=== PATIENT | female | born 1995 | race Caucasian/White ===

== ENCOUNTER 2016-10-25 22:29 | Emergency (ER) | payer OTHER ==
[~2016-10-25] VITALS: Ht 160 cm; Wt 75.4 kg
[~2016-10-25 22:29] MED LIST: BCPILLS PO
[2016-10-25 22:34] VITALS: TEMP 36.5; Ht 160 cm; Wt 75.4 kg
[2016-10-25] MEDS ORDERED: SODIUM CHLORIDE 0.9% 1000ML 1,000 ML IV STA (23:37)
[2016-10-25] MEDS ORDERED: ONDANSETRON INJ 2 MG/ML 2 ML VIAL IV STA (23:51)
[2016-10-26 00:04] LABS: HEMATOCRIT 39.2 % (37-47); MEAN CELL VOLUME 88.9 fL (80-100); MEAN CORPUSCULAR HEMOGLOBIN 29.9 pg (25-34); MEAN CORPUSCULAR HGB CONC 33.7 g/dl (32-36); MEAN PLATELET VOLUME 10.7 fL (7.4-10.4); PLATELET COUNT 234 K/uL (130-400); RED BLOOD COUNT 4.41 M/uL (4.2-5.4); WHITE BLOOD COUNT 17.56 K/uL (4.8-10.8)
[2016-10-26 00:28] LABS: BUN/CREATININE RATIO 21.3 (10-20); CALCIUM 8.8 mg/dl (8.5-10.1); CREATININE 0.6 mg/dl (0.60-1.20); POTASSIUM 3.5 mmol/L (3.5-5.1)
[2016-10-26 00:32] LABS: BASO % 0.1 %; BASO ABS # 0.02 K/uL (0-0.2); COMPLETE YES; EOS % 0.1 %; IG% 0.3 %; LYMPH % 6.4 %; LYMPH ABS # 1.12 K/uL (1.2-3.4); MONO % 3.5 %; NEUT % 89.6 %
[2016-10-26] MEDS ORDERED: MILK AND MOLASSES ENEMA PR STA (01:24)
[2016-10-26] MEDS ORDERED: MAGNESIUM CITRATE 296 ML/BTL PO ONE (02:30)
[2016-10-26 02:42] VITALS: BP 127/81; PULSE 79; O2SAT 100
--- NOTE | 2016-10-26 03:46 | EMERGENCY ROOM VISIT NOTE ---
History First contact with patient: 23:27 Chief Complaint: CONSTIPATION Stated Complaint: ABDOMINAL PAIN, VOMITING, Nursing Triage Summary: no BM for 10 days. extreme pain. took mirilax and still unable to go. 9-10 weeks History of Present Illness The patient is a 21 year old female who presents to the Emergency Room with complaints of abdominal cramping and bloating who is currently 10 weeks who is not had a bowel movement in 10 days. Patient has had an appendectomy in the past. She describes the pain as bloating, ranging in severity 4 out of 10 throughout her abdomen. Patient has tried MiraLAX and Fleet's with no improvement of symptoms. Patient has appointment tomorrow with her SMOKING PIPE MAKER for her initial visit. This is her second . No miscarriages. She is one living child. Patient denies vaginal itching or discharge, vaginal bleeding, urinary symptoms, back pain, nausea, vomiting, diarrhea, fever, chills, chest and, dyspnea or any other medical complaints. No history of bowel obstruction. Review of Systems See HPI for pertinent positives & negatives. A total of 10 systems reviewed and were otherwise negative. Past Medical/Surgical History Appendectomy, tonsillectomy, adenoidectomy Social History Smoking Status: Never Smoker Smokeless Tobacco Use: No Alcohol Use: none Drug Use: none Marital Status: single Housing Status: lives with family Occupation Status: employed Current/Historical Medications No Active Prescriptions or Reported Meds Allergies Coded Allergies: No Known Allergies (Unverified , 12/31/15) Physical Exam Vital Signs Date Time Temp Pulse Resp B/P (MAP) Pulse Ox O2 Delivery O2 Flow Rate FiO2 10/26/16 02:42 79 20 127/81 100 10/26/16 00:30 82 18 119/72 99 Room Air 10/25/16 22:34 36.5 78 18 112/63 98 Room Air Pain Rating (0-10): 2.0 Physical Exam VITALS: Vitals are noted on the nurse's note and reviewed by myself. Vital signs stable. GENERAL: Pleasant female, in no acute distress, nondiaphoretic, well-developed well-nourished. SKIN: The skin was without rashes, erythema, edema, or bruising. There is no tenting of the skin. Capillary reflex less than 2 seconds. HEAD: Normocephalic atraumatic. EARS: External auditory canals clear, tympanic membranes pearly crocker without erythema or effusion bilaterally. EYES: Pupils equal round and reactive to light and accommodation. Conjunctivae without injection, sclerae without icterus. Extraocular movements intact. NOSE: Patent, turbinates without inflammation or discharge. MOUTH: Mucous membranes moist. . Pharynx without erythema or exudate. Uvula midline. Airway patent. Tongue does not deviate. NECK: Supple without nuchal rigidity. No lymphadenopathy. No thyromegaly. Cervical spine is nontender. No JVD. HEART: Regular rate and rhythm without murmurs gallops or rubs. LUNGS: Clear to auscultation bilaterally without wheezes, rales or rhonchi. No dullness to percussion. No retractions or accessory muscle use. ABDOMEN: Positive bowel sounds x 4. Normal tympanic percussion. Soft, diffusely tender to palpation with no localized tenderness, no CVA tenderness without masses or organomegaly. Romano sign negative. No guarding or rebound tenderness. MUSCULOSKELETAL: No muscle atrophy, erythema, or edema noted. NEURO: Patient was alert and oriented to person place and time. Normal sensation to light and sharp touch. No focal neurological deficits. Medical Decision & Procedures Laboratory Results 10/25/16 23:50 Red Blood Count 4.41, Mean Corpuscular Volume 88.9, Mean Corpuscular Hemoglobin 29.9, Mean Corpuscular Hemoglobin Concent 33.7, Mean Platelet Volume 10.7, Neutrophils (%) (Auto) 89.6, Lymphocytes (%) (Auto) 6.4, Monocytes (%) (Auto) 3.5, Eosinophils (%) (Auto) 0.1, Basophils (%) (Auto) 0.1, Neutrophils # (Auto) 15.74, Lymphocytes # (Auto) 1.12, Monocytes # (Auto) 0.61, Eosinophils # (Auto) 0.01, Basophils # (Auto) 0.02 10/25/16 23:50 Test 10/25/16 23:50 White Blood Count 17.56 K/uL (4.8-10.8) Red Blood Count 4.41 M/uL (4.2-5.4) Hemoglobin 13.2 g/dL (12.0-16.0) Hematocrit 39.2 % (37-47) Mean Corpuscular Volume 88.9 fL (80-100) Mean Corpuscular Hemoglobin 29.9 pg (25-34) Mean Corpuscular Hemoglobin Concent 33.7 g/dl (32-36) Platelet Count 234 K/uL (130-400) Mean Platelet Volume 10.7 fL (7.4-10.4) Neutrophils (%) (Auto) 89.6 % Lymphocytes (%) (Auto) 6.4 % Monocytes (%) (Auto) 3.5 % Eosinophils (%) (Auto) 0.1 % Basophils (%) (Auto) 0.1 % Neutrophils # (Auto) 15.74 K/uL (1.4-6.5) Lymphocytes # (Auto) 1.12 K/uL (1.2-3.4) Monocytes # (Auto) 0.61 K/uL (0.11-0.59) Eosinophils # (Auto) 0.01 K/uL (0-0.5) Basophils # (Auto) 0.02 K/uL (0-0.2) RDW Standard Deviation 39.9 fL (36.4-46.3) RDW Coefficient of Variation 12.3 % (11.5-14.5) Immature Granulocyte % (Auto) 0.3 % Immature Granulocyte # (Auto) 0.06 K/uL (0.00-0.02) Red Blood Cell Morphology Unremarkable Anion Gap 8.0 mmol/L (3-11) Est Creatinine Clear Calc Drug Dose 141.8 ml/min Estimated GFR () 148.9 Estimated GFR (Non- 128.5 BUN/Creatinine Ratio 21.3 (10-20) Calcium Level 8.8 mg/dl (8.5-10.1) Human Chorionic Gonadotropin, Quant 073651 mIU/mL Medications Administered Medications (Trade) Dose Ordered Sig/Wesly Route Start Time Stop Time Status Last Admin Dose Admin Sodium Chloride 1,000 ml @ 999 mls/hr Q1H1M STAT IV 10/25/16 23:37 10/26/16 00:37 DC 10/25/16 23:57 999 MLS/HR Ondansetron HCl (Zofran Inj) 4 mg NOW STAT IV 10/25/16 23:51 10/25/16 23:52 DC 10/25/16 23:57 4 MG Miscellaneous Medication (Milk And Molasses Enema) 1 ea NOW STAT TX 10/26/16 01:24 10/26/16 01:25 DC 10/26/16 01:24 1 EA Magnesium Citrate (Citrate Of Magnesia Soln) 300 ml NOW ONCE PO 10/26/16 02:30 10/26/16 02:31 DC 10/26/16 02:30 300 ML ED Course Prior records/ancillary studies reviewed. Triage Nursing notes reviewed. Additional history obtained from family The patient's history was concerning for abdominal pain he was 10 weeks . Differential diagnosis: Etiologies such as complication with , ectopic , appendicitis , diverticulitis, PUD, biliary pathology, UTI, pancreatitis, obstruction, mesenteric ischemia, aortic pathology, infections, inflammatory bowel disease, renal colic, as well as others were entertained. Physical examination findings: As above. ER treatment provided: Enema, magnesium citrate On reassessment the patient felt better. Diagnostics interpreted by me: The labs revealed stable H&H. Positive hCG Imaging studies: Acute abdominal series with no free air or obstruction per my interpretation Ultrasound was reviewed and read by radiology Exam and history seem consistent with constipation. Patient felt much better after being medicated as above. She is strongly encouraged to increase her fluid and fiber intake and to follow-up as scheduled tomorrow with OB or here in the ER sooner for abdominal pain, fevers, vaginal bleeding, worsening signs or symptoms or as needed. Patient not have an acute abdomen on exam. She is well-appearing. She is tolerating fluids. She requested to leave. By the evaluation outlined above emergent etiologies such as appendicitis, diverticulitis, PUD, biliary pathology, UTI, pancreatitis, obstruction, mesenteric ischemia, aortic pathology, infections, inflammatory bowel disease, renal colic, as well as others were deemed relatively unlikely. The pt informed about the findings as listed above. All questions were answered and pleased with the treatment. Return instructions were outlined and the patient was discharged in stable condition. Outpatient prescription management: Magnesium citrate Referral: The patient was referred back to their PRINCIPLE INDUSTRIAL HYGIENIST for follow-up in 2 to 3 days for a recheck of the current condition. Case reviewed with my attending Medical Decision As above Impression Primary Impression: Constipation Additional Impression: Generalized abdominal discomfort Departure Information Dispostion Home / Self-Care Condition FAIR Prescriptions No Active Prescriptions or Reported Meds Forms HOME CARE DOCUMENTATION FORM, IMPORTANT VISIT INFORMATION Patient Instructions Constipation, My [facility] Additional Instructions Magnesium citrate: Drink half the bottle when you get home, if you do not have a bowel movement within 6 hours then drink the rest. Stay near a toilet. Increase your fluid and fiber intake. Acetaminophen(Tylenol) may be used for fever or pain. Use 1000mg every six hours as needed. Avoid using more than 3000mg in a 24 hour period. Rest and drink plenty of fluids as tolerated. Continue current medications. Avoid strenuous activities and anything that worsens your pain. Resume normal activities once your symptoms resolve. Return to the ER immediately for worsening or persistent abdominal pain, vomiting, fevers, chest pains, difficulty breathing, worsening of your condition , or as needed. Follow up with your wire winder in 2-3 days for a recheck of your current condition. Problem Qualifiers Primary Impression: Constipation Constipation type: unspecified constipation type Qualified Codes: K59.00 - Constipation, unspecified
--- NOTE | 2016-10-26 07:21 | DIAGNOSTIC IMAGING REPORT ---
ABDOMEN 2 VIEWS CLINICAL HISTORY: Abdominal pain. No recent bowel movement. 9-10 weeks . COMPARISON STUDY: CT of the abdomen and pelvis November 07, 2009. TECHNIQUE: The risks and benefits were discussed with the patient given . The patient agreed to this procedure. Upright and supine radiographs of the abdomen and pelvis were obtained. FINDINGS: There is no free air. Bowel gas pattern is normal. There is a moderate amount of stool within the colon with minimal stool within the rectum. There is a suspected 4 mm calculus within lower pole of the right kidney. A 2 mm left pelvic calcification is indeterminate. IMPRESSION: 1. No free air or evidence of bowel obstruction. 2. Suspected 4 mm right renal calculus. 3. 2 mm left pelvic calcification. A phlebolith is favored although a distal left ureteral calculus could appear similar. Electronically signed by: Goran Perez M.D. 10/26/2016 7:20 AM Dictated Date/Time: 10/26/2016 7:18 AM
--- NOTE | 2016-10-26 08:04 | DIAGNOSTIC IMAGING REPORT ---
ULTRASOUND OF THE PELVIS CLINICAL HISTORY: Pelvic pain. 10 weeks . COMPARISON STUDY: Pelvic ultrasound dated 12/31/2015. TECHNIQUE: Real-time, grayscale, and color flow sonography of the pelvis is performed transabdominally. Images are reviewed in the transverse and longitudinal planes. The patient declined the endovaginal examination. FINDINGS: Uterus: The uterus is normal in slightly heterogeneous in echotexture and measures approximately 10 cm in length Gestation: There is a single live intrauterine gestation with an estimated heart rate of 167 bpm. The crown-rump length measures 2.02 cm, corresponding to an estimated age of 8 weeks 4 days. A yolk sac is identified. There is trace subchorionic hemorrhage measuring 2.5 x 0.4 x 0.5 cm. Ovaries: The ovaries are normal in size and morphology. The right ovary measures 3.0 x 1.4 x 2.3 cm and the left ovary measures 4.1 x 2.5 x 2.2 cm. Normal Doppler waveforms are shown within both ovaries. Pelvis: There is no free fluid in the cul-de-sac. No concerning adnexal lesion is seen. IMPRESSION: 1. There is a single live intrauterine gestation with an estimated age of 8 weeks 4 days by crown-rump length measurement. 2. There is trace subchorionic hemorrhage. 3. The ovaries are normal as visualized. No adnexal lesion is seen. 4. The patient declined the endovaginal examination. Electronically signed by: Mikel Proctor M.D. 10/26/2016 8:03 AM Dictated Date/Time: 10/26/2016 8:00 AM
== END 2016-10-26 02:43 | disposition home or self-care (01) ==
LOC: C.EDB 22:30 → C.EDC 10-26 02:43
DX: K59.00 Constipation, unspecified (principal); R10.84 Generalized abdominal pain; Z98.890 Other specified postprocedural states

== ENCOUNTER → 2016-10-28 | Outpatient (CLI) | payer OTHER ==
[2016-10-28 12:18] LABS: BASO % 0.3 %; BASO ABS # 0.02 K/uL (0-0.2); COMPLETE YES; EOS % 1.3 %; HEMATOCRIT 36.3 % (37-47); IG% 0.3 %; LYMPH % 25.3 %; LYMPH ABS # 1.82 K/uL (1.2-3.4); MEAN CELL VOLUME 89.9 fL (80-100); MEAN CORPUSCULAR HGB CONC 33.3 g/dl (32-36); MEAN PLATELET VOLUME 11.1 fL (7.4-10.4); MONO % 6.8 %; PLATELET COUNT 225 K/uL (130-400); RED BLOOD COUNT 4.04 M/uL (4.2-5.4); WHITE BLOOD COUNT 7.19 K/uL (4.8-10.8)
== END | disposition home or self-care (01) ==
LOC: C.LAB1850 10:40
PROVIDERS: ATTEND Obstetrics & Gynecology
DX: Z34.81 Encounter for supervision of other normal pregnancy, first trimester (principal)

== ENCOUNTER → 2016-10-28 | Outpatient (CLI) | payer OTHER ==
[2016-10-28 15:02] LABS: URINE APPEARANCE CLEAR (CLEAR); URINE BILIRUBIN NEG (NEG); URINE COLOR DK YELLOW; URINE EPITHELIAL CELL AUTO >30 /lpf (0-5); URINE NITRITE NEG (NEG); URINE PH 6.5 (4.5-7.5); URINE SPECIFIC GRAVITY 1.029 (1.000-1.030); UROBILINOGEN NEG (NEG)
[2016-10-28 15:03] LABS: MANUAL MICROSCOPIC REQUIRED? NO; REVIEW REQ? NO
[2016-11-01 07:26] LABS: CHLAMYDIA TRACH RNA*** NOT DETECTED (NOT DETECTED); GC (NEIS GONORRHOEAE)RNA** NOT DETECTED (NOT DETECTED)
== END | disposition home or self-care (01) ==
LOC: C.LABSPEC 13:51
PROVIDERS: ATTEND Obstetrics & Gynecology
DX: Z34.81 Encounter for supervision of other normal pregnancy, first trimester (principal)

== ENCOUNTER → 2016-10-28 | Outpatient (CLI) | payer OTHER | END | disposition home or self-care (01) | LOC: C.PAPS 14:20 | PROVIDERS: ATTEND Obstetrics & Gynecology | DX: Z12.4 Encounter for screening for malignant neoplasm of cervix (principal); Z33.1 Pregnant state, incidental; R87.616 Satisfactory cervical smear but lacking transformation zone ==

== ENCOUNTER → 2016-11-18 | Outpatient (CLI) | payer OTHER ==
[2016-11-22 06:15] LABS: HEPATITIS C VIRAL RNA BY PCR <15 NOT DETECTED IU/ML (<15); HEPATITIS C VIRAL RNA(LOG) PCR <1.18 NOT DETECTED LOG IU/ML (<1.18)
== END | disposition home or self-care (01) ==
LOC: C.LAB1850 13:31
PROVIDERS: ATTEND Obstetrics & Gynecology
DX: O98.419 Viral hepatitis complicating pregnancy, unspecified trimester (principal); Z3A.00 Weeks of gestation of pregnancy not specified

== ENCOUNTER → 2017-01-12 | Outpatient (CLI) | payer OTHER ==
[2017-01-12 17:40] LABS: GTGD 50 Grams
== END | disposition home or self-care (01) ==
LOC: C.LAB1850 13:16
PROVIDERS: ATTEND Obstetrics & Gynecology
DX: Z34.82 Encounter for supervision of other normal pregnancy, second trimester (principal)

== ENCOUNTER → 2017-03-11 | Outpatient (CLI) | payer OTHER ==
[2017-03-11 17:41] LABS: URINE APPEARANCE TURBID (CLEAR); URINE BILIRUBIN NEG (NEG); URINE COLOR YELLOW; URINE EPITHELIAL CELL AUTO >30 /lpf (0-5); URINE NITRITE NEG (NEG); URINE PH 8.5 (4.5-7.5); URINE SPECIFIC GRAVITY 1.021 (1.000-1.030); UROBILINOGEN NEG (NEG)
[2017-03-11 17:45] LABS: MANUAL MICROSCOPIC REQUIRED? NO; REVIEW REQ? NO
== END | disposition home or self-care (01) ==
LOC: C.LABSPEC 17:24
PROVIDERS: ATTEND Obstetrics & Gynecology
DX: Z34.83 Encounter for supervision of other normal pregnancy, third trimester (principal)

== ENCOUNTER → 2017-03-23 | Outpatient (CLI) | payer OTHER ==
[2017-03-23 14:36] LABS: HEMATOCRIT 32.9 % (37-47)
[2017-03-23 15:47] LABS: GTGD 50 Grams
== END | disposition home or self-care (01) ==
LOC: C.LAB1850 11:56
PROVIDERS: ATTEND Obstetrics & Gynecology
DX: Z34.83 Encounter for supervision of other normal pregnancy, third trimester (principal)

== ENCOUNTER → 2017-05-06 | Outpatient (CLI) | payer OTHER | END | disposition home or self-care (01) | LOC: C.LABSPEC 17:22 | PROVIDERS: ATTEND Obstetrics & Gynecology | DX: Z34.83 Encounter for supervision of other normal pregnancy, third trimester (principal) ==

== ENCOUNTER → 2017-05-12 | Outpatient (CLI) | payer OTHER ==
[2017-05-12 10:03] LABS: BASO % 0.3 %; BASO ABS # 0.03 K/uL (0-0.2); EOS % 0.9 %; HEMATOCRIT 34.4 % (37-47); HEMOGLOBIN 11.6 g/dL (12.0-16.0); LYMPH % 19.9 %; LYMPH ABS # 2.15 K/uL (1.2-3.4); MEAN CELL VOLUME 93.2 fL (80-100); MEAN CORPUSCULAR HEMOGLOBIN 31.4 pg (25-34); MEAN CORPUSCULAR HGB CONC 33.7 g/dl (32-36); MEAN PLATELET VOLUME 12.1 fL (7.4-10.4); MONO % 6.2 %; MONO ABS # 0.67 K/uL (0.11-0.59); NEUT % 71.8 %; NEUT ABS # 7.78 K/uL (1.4-6.5); PLATELET COUNT 195 K/uL (130-400); RED CELL DISTRIBUTION WIDTH CV 13.2 % (11.5-14.5); RED CELL DISTRIBUTION WIDTH SD 44.9 fL (36.4-46.3); WHITE BLOOD COUNT 10.83 K/uL (4.8-10.8)
[2017-05-12 10:32] LABS: ALT/SGPT 14 U/L (12-78); AST/SGOT 12 U/L (15-37); CREATININE 0.64 mg/dl (0.60-1.20)
== END | disposition home or self-care (01) ==
LOC: C.LAB1850 09:29
PROVIDERS: ATTEND Obstetrics & Gynecology
DX: O21.9 Vomiting of pregnancy, unspecified (principal); O26.899 Other specified pregnancy related conditions, unspecified trimester

== ENCOUNTER 2017-05-30 05:34 | Inpatient (IN) | payer OTHER ==
--- NOTE | 2017-05-24 15:01 | HISTORY & PHYSICAL EXAMINATION ---
DATE OF ADMISSION: 05/30/2017 CHIEF COMPLAINT: Planned section. HISTORY OF PRESENT ILLNESS: A 21-year-old 2, para 1-0-0-1, who presents today at 38 and 5/7th weeks with EDC of 06/02/17, but who will be 39+ weeks on the day of her admission for planned section. The patient has a history of prior section for breech presentation. She declines . She has a history of chronic hepatitis C, followed by GI in [place] and has a history of a viral quant of 0. She denies vaginal bleeding, leaking, or contractions today. She reports good movement. OBSTETRICAL HISTORY: In 2016, she had a section for breech presentation in [place] at 38 weeks. GYNECOLOGICAL HISTORY: Chronic hepatitis C history with a history of IV drug use at age 11. In 2014, she had an ASCUS HPV negative Pap. PAST MEDICAL HISTORY: Chronic hepatitis C. PAST SURGICAL HISTORY: , appendectomy, tonsillectomy and adenoidectomy, birthmark removal, and oral surgery. ALLERGIES: No known drug allergies. MEDICATIONS: vitamins. SOCIAL HISTORY: No tobacco, alcohol or street drug use. FAMILY HISTORY: No congenital anomalies or mental retardation. LABS: O positive, rubella immune, and GBS negative. REVIEW OF SYSTEMS: Ten system and negative within the chart and does include some shortness of breath with stair climbing or housework. This is only during this . Heartburn. PHYSICAL EXAMINATION: VITAL SIGNS: Height 5 feet 3 inches and weight 188 pounds. Blood pressure 114/76. Urine negative for protein. HEART: Regular rate and rhythm. LUNGS: Clear to auscultation bilaterally. ABDOMEN: Soft, gravid, and nontender. heart tones 145. Fundal height 36 cm. EXTREMITIES: No edema. ASSESSMENT: 1. A 39+ week on the day of her admission. 2. Prior section, desires repeat section. 3. Declines vaginal after . PLAN: The patient will be admitted on 05/30/2017 for her planned section. Her estimated due date is 06/02/2017 so on the day of her repeat section she will be >39wks ega . She is aware of her preop and postop instructions and course. She is aware of consent form to include risks of bleeding, infection, anesthesia, injury to maternal and structures, as well as alternatives like and declines the latter. She is aware that her primary surgeon will change to Dr. Seo and he will meet her on Tuesday to review the consent form and proceed with the section. She is comfortable with all of that and had no further questions. SEJAL
--- NOTE | 2017-05-24 15:10 | PAT Medication Instructions ---
Service Date May 24, 2017. Current Home Medication List Multivit/Min/Iron/Fol Ac/Pren ( Vitamin), 1 TAB PO HS Medication Instructions For Your Scheduled Surgery - Take the following medications as scheduled the night before surgery: Multivit/Min/Iron/Fol Ac/Pren ( Vitamin), 1 TAB PO HS NOTHING TO EAT OR DRINK AFTER MIDNIGHT If you have any questions please call us at [phone] or [phone] or [phone]
[2017-05-24 16:12] LABS: BASO % 0.3 %; BASO ABS # 0.03 K/uL (0-0.2); EOS % 0.6 %; EOS ABS # 0.07 K/uL (0-0.5); HEMATOCRIT 35.1 % (37-47); HEMOGLOBIN 11.7 g/dL (12.0-16.0); IG# 0.17 K/uL (0.00-0.02); LYMPH % 18.1 %; LYMPH ABS # 2.08 K/uL (1.2-3.4); MEAN CELL VOLUME 92.6 fL (80-100); MEAN CORPUSCULAR HEMOGLOBIN 30.9 pg (25-34); MEAN CORPUSCULAR HGB CONC 33.3 g/dl (32-36); MONO % 7.4 %; MONO ABS # 0.85 K/uL (0.11-0.59); NEUT % 72.1 %; NEUT ABS # 8.32 K/uL (1.4-6.5); PLATELET COUNT 211 K/uL (130-400); RED CELL DISTRIBUTION WIDTH SD 46.7 fL (36.4-46.3); WHITE BLOOD COUNT 11.52 K/uL (4.8-10.8)
[~2017-05-30] VITALS: Ht 160 cm; Wt 86.4 kg
[2017-05-30] VITALS (13 sets, daily range): BP systolic 103–113; BP diastolic 44–69; PULSE 59–66; TEMP 36.3–37; O2SAT 96–99; Ht 160 cm; Wt 86.4 kg
[~2017-05-30 05:34] MED LIST changes: -BCPILLS PO; +LACTATED RINGER'S 1000ML 1,000 ML IV SCH; +PATIENT'S HEIGHT AND/OR WEIGHT NEEDED SCH; +PRENTAB26 PO
[2017-05-30] MEDS ORDERED: CEFAZOLIN IV 2,000 MG in SYRINGE 0 ML IV SCH (06:00)
[2017-05-30] MEDS ORDERED: CITRIC ACID/SODIUM CITRATE 15 ML UDC PO SCH (06:00)
[2017-05-30 06:03] LABS: BASO % 0.2 %; BASO ABS # 0.02 K/uL (0-0.2); EOS % 1.1 %; EOS ABS # 0.13 K/uL (0-0.5); HEMATOCRIT 35.3 % (37-47); HEMOGLOBIN 11.7 g/dL (12.0-16.0); LYMPH % 21.9 %; MEAN CELL VOLUME 91.9 fL (80-100); MEAN CORPUSCULAR HEMOGLOBIN 30.5 pg (25-34); MONO % 6.8 %; MONO ABS # 0.78 K/uL (0.11-0.59); NEUT % 69.1 %; NEUT ABS # 7.88 K/uL (1.4-6.5); PLATELET COUNT 191 K/uL (130-400); RED CELL DISTRIBUTION WIDTH CV 13.6 % (11.5-14.5); RED CELL DISTRIBUTION WIDTH SD 45.1 fL (36.4-46.3); WHITE BLOOD COUNT 11.41 K/uL (4.8-10.8)
[2017-05-30 06:16] LABS: MEAN CORPUSCULAR HGB CONC 33.1 g/dl (32-36)
--- NOTE | 2017-05-30 07:05 | History & Physical Bridge Note ---
H&P Re-Evaluation Bridge Note: I have examined the patient, reviewed the History & Physical and in the interval since the performance of the History & Physical I have noted the following changes of clinical significance: No changes noted
[2017-05-30] MEDS ORDERED: MoRPHine SULFATE PF 1 MG/ML 10 ML AMP/VIAL ONE (07:27)
[2017-05-30] MEDS ORDERED: FENTANYL CITRATE INJ 50 MCG/1 ML 2 ML VIAL ONE (07:27)
[2017-05-30] MEDS ORDERED: PHENYLEPHRINE 100MCG/ML 5ML SYR ONE (08:24)
[2017-05-30] MEDS ORDERED: ONDANSETRON INJ 2 MG/ML 2 ML VIAL ONE (08:24)
[2017-05-30] MEDS ORDERED: KETOROLAC TROMETHAMINE 30 MG/ML VIAL ONE (08:24)
[2017-05-30] MEDS ORDERED: OXYTOCIN INJ 10 UNITS/ML VIAL ONE (08:24)
[2017-05-30] MEDS ORDERED: DIPHTHERIA/TETANUS/PERTUSSIS 0.5 ML SYR/VIAL IM. ONE (08:30)
[2017-05-30] MEDS ORDERED: HYDROCORTISONE ACETATE 25 MG SUPP PR PRN (08:30)
[2017-05-30] MEDS ORDERED: DiphenhydrAMINE HCL 50 MG/ML VIAL IV PRN ×3 (08:30→09:00)
[2017-05-30] MEDS ORDERED: SUPERCREAM 0.870 % 15GM JAR EXT PRN (08:30)
[2017-05-30] MEDS ORDERED: KETOROLAC TROMETHAMINE 30 MG/ML VIAL IV. PRN (08:30)
[2017-05-30] MEDS ORDERED: BENZOCAINE 20% AER SPR 82.5 GM CAN EXT PRN (08:30)
[2017-05-30] MEDS ORDERED: ONDANSETRON INJ 2 MG/ML 2 ML VIAL IV PRN ×2 (08:30→09:00)
[2017-05-30] MEDS ORDERED: LANOLIN OINT EXT PRN (08:30)
[2017-05-30] MEDS ORDERED: OXYTOCIN INJ 20 UNITS in LACTATED RINGER'S 1000ML 1,000 ML IV SCH (08:45)
--- NOTE | 2017-05-30 08:47 | [facility] Post Operative Brief Note ---
Immediate Operative Summary Operative Date May 30, 2017. Pre-Operative Diagnosis 1) Term 2) Previous C/S 3) H/O Hep C Post-Operative Diagnosis 1) Same 2) Surgically absent distal Right tube Procedure(s) Performed 1) Repeat LCT C/S Surgeon Gabbi Equipment Validation Engineer Surgeon(s) Karol Swenson Estimated Blood Loss 800 Findings See Below (viable female , Apgars, 9/10; weight 7lbs 12 ozs; art/venous gasses pending; normal appearing left tube and ovary, surgically absent distal right tube, normal right ovary) as above Fluids (cc crystalloids) 1500 Specimens 1) Placenta 2) Cord Bloods 3) Cord gasses Drains Aguiar to gravity Anesthesia Type Spinal Disposition Accompanied Pt To Recover: yes Disposition: L&D
[2017-05-30] MEDS ORDERED: LACTATED RINGER'S 1000ML 500 ML IV PRN (08:49)
[2017-05-30] MEDS ORDERED: NALOXONE HCL INJ 0.08 MG in SYRINGE 1.8 ML IV PRN (08:49)
[2017-05-30] MEDS ORDERED: NALOXONE HCL INJ 1 MG in SODIUM CHLORIDE 0.9% 1000ML 1,000 ML IV PRN (08:49)
[2017-05-30] MEDS ORDERED: SODIUM CHLORIDE 0.9% 1000ML 1,000 ML IV PRN (08:49)
[2017-05-30] MEDS ORDERED: MoRPHine SULFATE PF 1 MG/ML 10 ML AMP/VIAL EPI PRN (09:00)
[2017-05-30] MEDS: SIMETHICONE 80 MG CHEW PO SCH ×4 (09:00→19:44)
[2017-05-30] MEDS ORDERED: NALOXONE HCL 0.4 MG/1 ML VIAL/CARP IV PRN (09:00)
[2017-05-30] MEDS ORDERED: MEPERIDINE HCL 25 MG/ML CARP IV PRN (09:00)
[2017-05-30] MEDS ORDERED: MoRPHine SULFATE 2 MG/ML CARP IV PRN (09:00)
[2017-05-30] MEDS ORDERED: NO NARCOTICS OR SEDATIVES SCH (09:00)
[2017-05-30] MEDS ORDERED: EpHEDrine SULFATE INJ 50 MG/ML AMP IV PRN (09:00)
[2017-05-30] MEDS ORDERED: NALBUPHINE HCL INJ 10 MG/ML AMP IV PRN (09:00)
[2017-05-30] MEDS ORDERED: PROMETHAZINE HCL INJ 6.25 MG in SODIUM CHLORIDE 0.9% 50ML 50 ML IV PRN (09:00)
--- NOTE | 2017-05-30 10:26 | OPERATIVE REPORT ---
DATE OF OPERATION: 05/30/2017 PREOPERATIVE DIAGNOSES: 1. Term . 2. Previous section. 3. Hepatitis C carrier. POSTOPERATIVE DIAGNOSES: 1. Same. 2. Surgically absent right distal fallopian tube. PROCEDURE PERFORMED: Repeat low cervical transverse section. SURGEON: Dr. Seo. GUIDE VISITOR: Dr. Nadine Swenson. ANESTHESIA: Spinal. FINDINGS: Viable female with Apgars of 9 and 10 and weight of 7 pounds 12 ounces. Arterial and venous cord gases pending. Normal appearing left tube and ovary. Surgically absent distal right fallopian tube with normal appearing right ovary. PROCEDURE IN DETAIL: The patient was taken to the operating room and after spinal anesthesia, was placed in supine position and draped and prepped in the usual fashion. Pfannenstiel type incision through previous surgical scar was made. Underlying subcutaneous tissue was dissected down to the ventral abdominal fascia, which was nicked and opened in a horizontal manner. Preperitoneal fascia was dissected away until the peritoneal cavity was entered and opened in a vertical manner. Bladder blade was placed. Peritoneum overlying the uterus was elevated, opened in a semi-lunar fashion, the inferior margin of which was taken down creating the bladder flap. The uterus was entered sharply and extended in a semilunar fashion manually. Viable female with description above was delivered. Cord was clamped and cut. Cord gases and cord blood samples obtained. Placenta was delivered spontaneously. The uterus was exteriorized. The uterine cavity was wiped clean of any residual blood tissue and/or clot. Uterine incision had extended on the left edge down towards the vagina in a hockey stick type fashion. The extension was first repaired with 2 layers of 4-0 Vicryl, the first a running locking stitch and then an imbricating stitch. The uterine incision was then closed with 2 layers of 4-0 Vicryl running stitch in a locking stitch. Hemostasis was present. Inspection of the adnexa showed normal appearing left tube and ovary. On the right side, the right ovary was visualized, but the distal right tube was absent, presumed removed at the time of the patient's previous appendectomy. The uterus was returned to the pelvic cavity. The pericolic gutters were cleared bilaterally of any blood tissue and/or clot. Uterus was inspected for hemostasis, which was again present. Sponge and needle count was correct. Rectus muscle was plicated in the midline with a running 2-0 Vicryl stitch. The fascia was then closed laterally with a running 0 Vicryl suture. The subcutaneous tissue was irrigated with warm saline and the skin incision was closed with a 4-0 Monocryl subcuticular suture. Sterile dressing was applied and the patient was taken to the recovery room in satisfactory condition. I attest to the content of the Intraoperative Record and any orders documented therein. Any exception s are noted below.
[2017-05-30] MEDS ORDERED: NURSING VERBAL MED ORDER ONE (12:15)
[2017-05-30] MEDS ORDERED: MoRPHine SULFATE 4 MG/ML 1 ML CARP\\VIAL ONE (12:19)
[2017-05-30] MEDS ORDERED: ACETAMINOPHEN 1000 MG/100 ML IV IV ONE (12:19)
--- NOTE | 2017-05-30 15:29 | Anesthesiology Progress Note ---
Anesthesia Post Op Note Date & Time May 30, 2017 at 15:29 Vital Signs Pain Intensity: 8.0 Vital Signs Past 12 Hours Date Time Temp Pulse Resp B/P (MAP) Pulse Ox O2 Delivery O2 Flow Rate FiO2 05/30/17 11:50 20 98 05/30/17 11:50 36.3 66 20 113/61 (78) 98 Room Air 05/30/17 11:00 36.3 60 18 106/69 (81) 99 Room Air 05/30/17 11:00 18 99 05/30/17 11:00 99 Room Air Notes Mental Status: alert / awake / arousable, participated in evaluation Pt Amnestic to Procedure: Yes Nausea / Vomiting: adequately controlled Pain: adequately controlled Airway Patency, RR, SpO2: stable & adequate BP & HR: stable & adequate Hydration State: stable & adequate Neuraxial Anesthesia: sensory block resolved Anesthetic Complications: no major complications apparent
[2017-05-30] MEDS: KETOROLAC TROMETHAMINE 30 MG/ML VIAL IV. PRN ×2 (15:35→22:58)
--- NOTE | 2017-05-30 15:36 | Discharge Instructions ---
Discharge Instructions Date of Service May 30, 2017. Admission Reason for Admission: with History of Section Discharge Discharge Diagnosis / Problem: Discharge Goals Goal(s): Routine recovery after Medications Continue Dispensed Medications: supercream, dermaplast, tucks, lansinoh Activity Recommendations Activity Limitations: per Instructions/Follow-up section . Instructions / Follow-Up Instructions / Follow-Up ACTIVITY RECOMMENDATIONS: * Gradual return to full activity over the next 2-3 weeks. * No lifting - nothing heavier than baby over the next 2-3 weeks. * Do not engage in vigorous exercise, sexual activity or sports until cleared by your physician. * Do not drive or operate any motorized equipment until cleared by your physician. * You may shower/bathe daily. MEDICATIONS: For discomfort or pain, you may use Acetaminophen (Tylenol), Ibuprofen (Advil), or Naproxen (Aleve) following the package directions. For constipation you may use Colace following the package directions. BREAST CARE: If you are not breast feeding: * Wear a supportive bra 24 hours a day for one to two weeks. * Avoid stimulating your breasts and nipples as much as possible during the first few weeks after delivery. * When taking a shower, have the warm water hit your back, not breasts. * When your breasts feel full, apply ice packs. Usually three to four times a day helps ease the discomfort. * Take a mild pain medication (Tylenol / Motrin) when you are uncomfortable. If breast feeding: * Use breast milk to lubricate nipples. Lansinoh cream may be used for sore nipples. You do not need to remove cream prior to breast feeding. If using a different brand of cream, check the label for directions regarding removal of cream prior to nursing. * Wear a supportive bra. * If having problems with breasts or breast feeding, call a color consultant or your health care provider. SPECIAL CARE INSTRUCTIONS: When you are discharged from the hospital, it is important for you to follow the instructions listed below: * During the first week at home, you should be able to care for yourself and your baby. In addition, the usual light household activities are encouraged. * Limit your activities to the way you feel. Do not try to clean the house or move furniture. Be sensible. * If you actively engage in sports and have done so up until the time of your delivery, you may resume these activities as soon as you feel able. This may take up to one month or even longer. Use good judgment. * Continue to take your vitamins for at least six weeks after the of your baby. * Your diet need not be limited unless you were on a special diet before your delivery. Breast-feeding mothers need around 2500 calories per day and at least 64-80 ounces of fluid per day (8 to 10 glasses). * You should eat foods from the four major food groups. Crash diets or fad diets are to be avoided. Eating lean meats, fresh fruits and vegetables, low-fat dairy products, high fiber foods and a regular exercise program, will help you get back to your pre- weight without putting your health at risk. * Constipation is sometimes a problem after delivery. Take a mild laxative as needed. If breast feeding, Milk of Magnesia is acceptable to use. You may use a suppository or Fleets enema. * A daily shower or tub bath is suggested. Wash incision daily with warm soapy water and pat dry. It doesn't need to be covered unless drainage is present. * A bloody vaginal discharge will usually continue until around four weeks . A small amount of bleeding may continue for as long as six weeks. Vaginal discharge changes from the bright red bleeding after delivery to pink then brownish and finally yellowish-pink before becoming white and disappearing. * Bleeding may increase with activity. Your first period may come in 4-8 weeks. If you are breast feeding, your period may be delayed even longer. * [place] (sex) can begin whenever both you and your partner feel comfortable and do not have any form of genital infection. It is recommended that you wait at least six weeks for internal and external healing to occur. If you have questions, please talk to your health care practitioner. A condom should be used to prevent infection and . * Foreplay, gentle intercourse and lubrication is very important the first several times to prevent pain. A water-based lubricant such as K-Y jelly or Astroglide may be used. * If you have RH negative blood and your baby is RH positive, you will receive RHOGAM by injection prior to discharge. The nurse will give you a card to keep with you that has the date and place that you received RHOGAM after delivery. * During your care, you had a Rubella screen done to check for the presence of rubella antibodies in your blood. If your test was negative, you will receive a Rubella vaccine prior to discharge. This vaccine may cause a fever, soreness at the injection site and flu-like symptoms. If these symptoms persist, notify your health care practitioner. is not advised for one month after a Rubella vaccine. * Verbalizes understanding of car seat law as reviewed with patient nursing. * Car Seat hand-out given and reviewed with patient by nursing. * Shaken baby information reviewed with patient by nursing. Call you doctor if: * Heavy bleeding (saturating several pads an hour) or passing clots the size of your fist. * A fever >101 degrees F (38.3 degrees C) on two occasions four hours apart and /or chills. * Unusual pain in the pelvic or vaginal areas. * Call the doctor for any increased redness, drainage or swelling around the incision and any pain unrelieved by prescribed pain medication. * "Baby Blues" lasting longer than two weeks. If you have any questions or concerns, call your health care practitioner at . FOLLOW UP VISIT: * Please call the office at to schedule a 6 week examination. It is important you keep this appointment. It is important for you to make arrangements for either yearly or twice yearly check-ups thereafter. Current Hospital Diet Patient's current hospital diet: Regular OB diet Discharge Diet Recommended Diet: Regular Diet Procedures Procedures Performed: Repeat caesarean section for live female child at 0802. Pending Studies Studies pending at discharge: no Medical Emergencies . Who to Call and When: Medical Emergencies: If at any time you feel your situation is an emergency, please call [phone] immediately. . Non-Emergent Contact Non-Emergency issues call your: Primary Care Provider . . "Provider Documentation" section prepared by Kathi Roberson. . VTE Core Measure Inpt VTE Proph given/why not?: SCD's
[2017-05-30] MEDS ORDERED: MoRPHine SULFATE 4 MG/ML 1 ML CARP\\VIAL IV PRN (15:45)
[2017-05-30] MEDS ORDERED: ACETAMINOPHEN IV 1000MG/100ML IV PRN (16:00)
[2017-05-30] MEDS: MoRPHine SULFATE 4 MG/ML 1 ML CARP\\VIAL IV PRN ×2 (19:05→23:51)
[2017-05-31] VITALS (8 sets, daily range): BP systolic 103–114; BP diastolic 53–77; PULSE 61–68; TEMP 36.5–37.7; O2SAT 97–99
[2017-05-31] MEDS ORDERED: DC INTRASPINAL MORPHINE ONE (02:00)
[2017-05-31] MEDS: OXYCODONE/ACETAMINOPHEN 5-325 TAB PO PRN ×6 (03:58→23:56)
[2017-05-31] MEDS: IBUPROFEN 600 MG TAB PO PRN ×5 (03:59→23:56)
--- NOTE | 2017-05-31 06:49 | Progress Note ---
Subjective May 31, 2017. Subjective conversation w/ patient (Pt seen and examined at bedside. Reports no new overnight events) Ambulation: ambulating normally Voiding: no voiding problems Passing Gas: Yes Diet Tolerance: Regular Diet Lochia: Moderate (passing several clots, no larger than a golf ball) Feeding Type: Breast Feeding Pain: 7/10, localized to incision Comment: She also reports right shoulder pain that is improving. Review of Systems Constitutional: No fever, No chills Respiratory: No cough, No shortness of breath Cardiac: No chest pain, No edema, No palpitations Abdomen: + pain (localized over incision), No nausea, No vomiting Female : No dysuria Objective Vital Signs Date Time Temp Pulse Resp B/P (MAP) Pulse Ox O2 Delivery O2 Flow Rate FiO2 05/31/17 03:45 36.8 61 18 105/53 (70) 97 Room Air 05/31/17 02:00 20 97 05/31/17 01:00 18 98 05/31/17 00:05 99 Room Air 05/31/17 00:05 36.6 65 18 114/62 (79) 99 Room Air 05/31/17 00:05 18 99 05/30/17 22:30 16 96 05/30/17 21:30 16 96 05/30/17 20:30 18 98 05/30/17 20:30 36.7 59 16 109/44 (65) 98 Room Air 05/30/17 19:30 18 97 05/30/17 18:30 18 97 05/30/17 17:30 20 98 05/30/17 16:15 18 98 05/30/17 15:40 20 98 05/30/17 15:40 98 Room Air 05/30/17 15:40 37.0 61 20 103/53 (70) 98 Room Air 05/30/17 14:20 20 99 05/30/17 13:15 18 99 05/30/17 12:15 20 99 05/30/17 11:50 20 98 05/30/17 11:50 36.3 66 20 113/61 (78) 98 Room Air 05/30/17 11:00 36.3 60 18 106/69 (81) 99 Room Air 05/30/17 11:00 18 99 05/30/17 11:00 99 Room Air Physical Exam General Appearance: WELL-APPEARING, WD/WN, NO APPARENT DISTRESS Respiratory/Chest: chest non-tender, lungs clear, normal breath sounds, no respiratory distress, no accessory muscle use Cardiovascular: regular rate, rhythm, no gallop, no murmur Abdomen: normal bowel sounds, non tender, soft Fundus: Firm, Tender, Relation to Umbilicus (at umbilicus) Incision Description: Clean, Dry & Intact Extremities: normal range of motion, non-tender, normal inspection, no pedal edema, no calf tenderness Laboratory Results Last 24 Hours Test 05/30/17 07:30 05/31/17 06:00 Lab Scanned Report Laboratory Report/Additional Assessment and Plan Problem List Medical Problems: (1) Abdominal discomfort Status: Acute (2) Constipation Status: Acute Post-Op Day#: 1 Continue Routine Care: A&P: s/p day 1 - vital signs reviewed and wnl - will review hemoglobin results later in the day when available (11.4 yesterday ) - blood type O+, rubella immune and GBS -ve - patient doing well clinically - encourage ambulation, monitor and control pain with percocet and ibuprofen - continue regular diet, monitor lochia PGY 1 Resident Physician Supervision Note: I was present with Dr. Oquendo (resident) during the history and exam. I discussed the case with the resident and agree with the findings and plan as documented in the note. Any exceptions or clarifications are listed here: pt doing well. no complaints. ambulate, advance diet, po pain meds. routine care. Documented By: Joselin Humphrye Resident Tracking Resident Involvement: Resident Care Provided Care Provided: OB Delivery
[2017-05-31 08:14] LABS: BASO % 0.3 %; BASO ABS # 0.04 K/uL (0-0.2); EOS ABS # 0.14 K/uL (0-0.5); HEMATOCRIT 30.2 % (37-47); IG# 0.06 K/uL (0.00-0.02); LYMPH % 15.4 %; LYMPH ABS # 2.11 K/uL (1.2-3.4); MEAN CELL VOLUME 92.1 fL (80-100); MEAN CORPUSCULAR HEMOGLOBIN 30.5 pg (25-34); MEAN CORPUSCULAR HGB CONC 33.1 g/dl (32-36); MEAN PLATELET VOLUME 11.6 fL (7.4-10.4); MONO % 7.5 %; MONO ABS # 1.02 K/uL (0.11-0.59); NEUT % 75.4 %; NEUT ABS # 10.29 K/uL (1.4-6.5); PLATELET COUNT 173 K/uL (130-400); RED CELL DISTRIBUTION WIDTH CV 13.7 % (11.5-14.5); RED CELL DISTRIBUTION WIDTH SD 45.5 fL (36.4-46.3); WHITE BLOOD COUNT 13.66 K/uL (4.8-10.8)
[2017-05-31] MEDS: FERROUS SULFATE 325 MG TAB PO SCH (08:33)
[2017-05-31] MEDS: SIMETHICONE 80 MG CHEW PO SCH ×4 (08:34→20:08)
[2017-05-31] MEDS: PRENATAL VITAMIN TAB PO SCH (08:34)
[2017-05-31] MEDS ORDERED: MAGNESIUM HYDROXIDE SUSP 30 ML UDC PO SCH (22:00)
[2017-05-31] MEDS ORDERED: SENNA 8.6 MG TAB PO SCH (22:00)
[2017-06-01] MEDS: IBUPROFEN 600 MG TAB PO PRN ×2 (05:28→11:24)
[2017-06-01] MEDS: OXYCODONE/ACETAMINOPHEN 5-325 TAB PO PRN ×2 (05:29→11:23)
[2017-06-01 06:34] LABS: HEMATOCRIT 32.4 % (37-47); HEMOGLOBIN 10.5 g/dL (12.0-16.0)
--- NOTE | 2017-06-01 06:43 | Progress Note ---
Subjective Jun 01, 2017. Subjective conversation w/ patient Ambulation: ambulating normally Voiding: no voiding problems Passing Gas: Yes Diet Tolerance: Regular Diet Lochia: Moderate Feeding Type: Breast Feeding Pain: Still 7/10, localized to incision. Well controlled with 2 percocet & motrin Comment: Right shoulder pain resolved. Review of Systems Constitutional: No fever, No chills, No sweats Respiratory: No cough, No shortness of breath Cardiac: No chest pain, No edema Breast: No breast pain Abdomen: No pain, No nausea, No vomiting Female : No dysuria Objective Vital Signs Date Time Temp Pulse Resp B/P (MAP) Pulse Ox O2 Delivery O2 Flow Rate FiO2 05/31/17 23:30 36.5 68 20 113/77 (89) Room Air 05/31/17 23:30 Room Air 05/31/17 15:15 98 Room Air 05/31/17 15:15 36.7 62 18 104/56 (72) 98 Room Air 05/31/17 09:20 Room Air 05/31/17 07:23 37.7 63 16 103/58 (73) 99 Room Air Physical Exam General Appearance: WELL-APPEARING, WD/WN, NO APPARENT DISTRESS Respiratory/Chest: chest non-tender, lungs clear, normal breath sounds, no respiratory distress, no accessory muscle use Cardiovascular: regular rate, rhythm, no edema, no gallop, no murmur Abdomen: normal bowel sounds, non tender, soft Fundus: Firm, Tender, Relation to Umbilicus (1cm below) Incision Description: Clean, Dry & Intact Extremities: normal range of motion, non-tender, normal inspection, no pedal edema, no calf tenderness Laboratory Results Last 24 Hours Test 05/31/17 07:19 06/01/17 06:06 White Blood Count 13.66 K/uL Red Blood Count 3.28 M/uL Hemoglobin 10.0 g/dL 10.5 g/dL Hematocrit 30.2 % 32.4 % Mean Corpuscular Volume 92.1 fL Mean Corpuscular Hemoglobin 30.5 pg Mean Corpuscular Hemoglobin Concent 33.1 g/dl Platelet Count 173 K/uL Mean Platelet Volume 11.6 fL Neutrophils (%) (Auto) 75.4 % Lymphocytes (%) (Auto) 15.4 % Monocytes (%) (Auto) 7.5 % Eosinophils (%) (Auto) 1.0 % Basophils (%) (Auto) 0.3 % Neutrophils # (Auto) 10.29 K/uL Lymphocytes # (Auto) 2.11 K/uL Monocytes # (Auto) 1.02 K/uL Eosinophils # (Auto) 0.14 K/uL Basophils # (Auto) 0.04 K/uL RDW Standard Deviation 45.5 fL RDW Coefficient of Variation 13.7 % Immature Granulocyte % (Auto) 0.4 % Immature Granulocyte # (Auto) 0.06 K/uL Medications Current Inpatient Medications Medications (Trade) Dose Ordered Sig/Ewsly Route Start Time Stop Time Status Last Admin Dose Admin Ketorolac Tromethamine (Toradol Inj) 30 mg Q6H PRN IV. 05/30/17 08:30 06/04/17 08:29 Future hold Oxycodone/ Acetaminophen (Percocet 5-325mg Tab) 1 tab Q4H PRN PO 05/30/17 08:30 06/13/17 08:29 Future hold 05/31/17 13:55 1 TAB Oxycodone/ Acetaminophen (Percocet 5-325mg Tab) 2 tab Q4H PRN PO 05/30/17 08:30 06/13/17 08:29 Future hold 06/01/17 05:29 2 TAB Ibuprofen (Motrin Tab) 600 mg Q4H PRN PO 05/30/17 08:30 06/29/17 08:29 06/01/17 05:28 600 MG Ondansetron HCl (Zofran Inj) 4 mg Q4H PRN IV 05/30/17 08:30 06/29/17 08:29 Future hold Prenat Multivit/ Wind [employer] Service Manager/Iron/Folic Ac ( Vitamin Tab) 1 tab DAILY PO 05/31/17 08:00 06/30/17 07:59 05/31/17 08:34 1 TAB Magnesium Hydroxide (Milk Of Magnesia Susp) 30 ml HS PO 05/31/17 22:00 06/30/17 21:59 05/31/17 21:47 30 ML Ferrous Sulfate (Feosol Tab) 325 mg DAILY PO 05/31/17 08:00 06/30/17 07:59 05/31/17 08:33 325 MG Cocaine HCl (Supercream 0.870% Cr) BID PRN EXT 05/30/17 08:30 06/13/17 08:29 Lanolin (Lanolin Oint) PRN PRN EXT 05/30/17 08:30 06/29/17 08:29 Hydrocortisone Acetate (Anusol Hc Supp) 25 mg BID PRN UT 05/30/17 08:30 06/29/17 08:29 Benzocaine (Dermoplast Aero Spr) 1 appln PRN PRN EXT 05/30/17 08:30 06/29/17 08:29 Simethicone (Mylicon Chew Tab) 80 mg QID PO 05/30/17 09:00 06/29/17 08:59 05/31/17 20:08 80 MG Diphenhydramine HCl (Benadryl Cap) 25 mg QID PRN PO 05/30/17 08:30 06/29/17 08:29 Future hold Diphenhydramine HCl (Benadryl Inj) 25 mg QID PRN IV 05/30/17 08:30 06/29/17 08:29 Future hold Senna (Senokot Tab) 17.2 mg HS PO 05/31/17 22:00 06/30/17 21:59 05/31/17 21:48 17.2 MG Assessment and Plan Problem List Medical Problems: (1) Abdominal discomfort Status: Acute (2) Constipation Status: Acute Post-Op Day#: 2 Continue Routine Care: A&P: s/p day 2 - vital signs reviewed and wnl - Hgb 10.5 today (10 yesterday) - patient doing well clinically - encourage ambulation, monitor and control pain with percocet and ibuprofen - continue regular diet, monitor lochia - will review d/c instructions as patient ready for discharge today Kathi Roberson, PGY 1 Resident Physician Supervision Note: I interviewed and examined the patient. Discussed with Dr. Roberson and agree with findings and plan as documented in the note. Any exceptions or clarifications are listed here: [None] Documented By: Katia Pantoja Resident Tracking Resident Involvement: Resident Care Provided Care Provided: OB Delivery
[2017-06-01] MEDS ORDERED: MISC-836 (07:29)
[2017-06-01] MEDS ORDERED: OXYC-57 PO (07:30)
[2017-06-01 07:50] VITALS: BP 106/58; PULSE 70; TEMP 36.9; O2SAT 96
[2017-06-01] MEDS: PRENATAL VITAMIN TAB PO SCH (08:25)
[2017-06-01] MEDS: FERROUS SULFATE 325 MG TAB PO SCH (08:25)
[2017-06-01] MEDS: SIMETHICONE 80 MG CHEW PO SCH (08:26)
[2017-06-01 11:08] VITALS: BP_DIAS 58; PULSE 70; TEMP 36.9
== END 2017-06-01 12:18 | disposition home or self-care (01) | DRG 766 ==
LOC: C.LD 05:34 → EDSTATUS 07:30 → C.OBG 10:52
PROVIDERS: ADMIT Obstetrics & Gynecology; ATTEND Obstetrics & Gynecology
PROC: 10D00Z1 Extraction of Products of Conception, Low, Open Approach (ICD-10-PCS; principal; 2017-05-30 07:30)
DX: O98.42 Viral hepatitis complicating childbirth (principal); B18.2 Chronic viral hepatitis C; Z3A.39 39 weeks gestation of pregnancy; Z37.0 Single live birth; Z87.42 Personal history of other diseases of the female genital tract; Z90.79 Acquired absence of other genital organ(s)

== ENCOUNTER 2021-04-22 06:06 | Observation (INO) ==
--- NOTE | 2021-04-20 11:19 | Anesthesiology Consultation ---
Date of Service April 20, 2021 Assessment & Plan (1) Encounter for pre-operative examination: - COVID screening: Per assessment on 04/13: Travel screen negative, no known COVID-19 positive contacts or current COVID-19 related symptoms. Surgeon jhonathan hughes preop COVID testing (scheduled 04/20; [place]). Awaiting results. - S/P Right ESWL (11/14/20): [place] [facility] [place]phrology office visit (04/14/21): "24 hour urine PEP requested. Urine has been acellular. No history of hematuria. Imaging, including CT w/o reviewed today. Kidneys are normal in appearance. MGM history of cystic kidney disease noted. Consider TBM disease or underlying medullary cystic. Imaging does not demonstrate nephrocalcinosis. Laboratory evaluation including repeat screening for HIV and hepatitis C requested. MEÑO/ARB deferred pending prospective monitoring. Unclear that Kimberlee would tolerate due to chronic hypotension. Avoid NSAIDS. KDIGO staging and classification reviewed. Creatinine has been normal." F/U 3 months recommended. - Medical necessity: Per surgeon office visit note (01/16/21): "Medical necessity has been established by the significant deformity and the resulting functional impairment in mastication. Medical Indication For Reconstructive Jaw Surgery.. Inability to close jaws into a normal relationship due to the severe skeletal deformity.. 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 Soft tissue trauma to tongue, lips and cheeks due to the traumatic occlusion." Per message from Hali Keith 04/16, surgeon states "custom plates and molds were obtained for this procedure. If it is delayed, there is greater risk that they will not fit appropriately." Case reviewed by Dr. Bhakta. Per verbal 04/20, approved to done as scheduled at [facility] (in setting of current COVID surge/OR limitations). - Check test AM DOS Chart Review Chart Review: Acceptable Risk for Surgery (pending surgeon-ordered preop labs) and Patient NOT seen in Pre Admission Testing History Surgery Operation Date: 04/22/21 07:15 Proposed Procedures p [place] I, Spagittal Splint Osteotomies - [place], QUOC Height/Weight Height: 5 ft 4 in Weight: 58.967 kg Allergies Allergy/AdvReac Type Severity Reaction Status Date / Time No Known Allergies Allergy Verified 04/14/21 13:14 Medications Home Medications Medication Instructions Recorded Confirmed Last Taken dextroamphetamine-amphetamine 20 20 mg PO BID 04/13/19 04/14/21 11/13/20 mg tablet (Adderall) levothyroxine 50 mcg tablet 50 mcg PO QAM 04/13/19 04/14/21 11/13/20 cetirizine 10 mg capsule (Zyrtec) 10 mg PO QAM 11/05/20 04/14/21 11/13/20 cholecalciferol (vitamin D3) 50 100 mcg PO QAM 11/05/20 04/14/21 11/12/20 mcg (2,000 unit) capsule (Vitamin D3) multivitamin with minerals 1 tab PO QAM 11/05/20 04/14/21 Unknown (Hair,Skin and Nails) vitamin B complex 1 cap PO QAM 11/05/20 04/14/21 11/13/20 Past Medical History Medical History (Updated 04/20/21 @ 11:10 by Marlen Jones) ADD (attention deficit disorder) Hepatitis C antibody positive in blood followed with GI x 5 years; monitored; no hx active hep C requiring treatment History of ovarian cyst Chronic Hypothyroidism Kidney stones Hx Nausea after anesthesia Renal calculus, right Right ovarian cyst TMJ (temporomandibular joint disorder) + popping/locking (most recent episode "a few weeks ago") Past Family History Family History Other Cancer No family history of adverse response to anesthesia No pertinent family history Denies family history of Ovarian cancer Breast cancer Colorectal cancer Past Surgical History Surgical History (Updated 04/20/21 @ 11:11 by Marlen Jones) History of adenoidectomy History of anesthesia reaction General aggravation (non-violent), crying with emergence History of appendectomy 2008 History of section History of colonoscopy History of esophagogastroduodenoscopy (EGD) History of lithotripsy Right ESWL (11/14/20): [place] [facility] [place] History of oral surgery 2007 History of surgery precancerous birthmark removal/ graft 2004 History of tonsillectomy Social History Smoking Status: Current every day smoker tobacco type: cigarettes Smoking cigarettes per day: 1/2 ppd Do You Dip or Chew Tobacco: No Hx Alcohol Use: Yes alcohol intake frequency: holidays/special occasions only Hx Substance Use: No substance use type: does not use
[~2021-04-22 06:06] MED LIST changes: +LACTATED RINGER'S 1,000 ML IV SCH; -LACTATED RINGER'S 1000ML 1,000 ML IV SCH; +LR 15ML/HR IV SCH; -PATIENT'S HEIGHT AND/OR WEIGHT NEEDED SCH; -PRENTAB26 PO; +ceFAZolin 1000MG 1,000 MG/7.5 ML SYR IV SCH
[2021-04-22] MEDS ORDERED: ePHEDrine sulfate 50 MG/ML AMP IV PRN (06:45)
[2021-04-22] MEDS ORDERED: ATROPINE SULFATE 0.1 MG/ML 10ML SYR IV PRN (06:45)
[2021-04-22] MEDS ORDERED: ONDANSETRON INJ 2 MG/ML 2 ML VIAL IV PRN ×2 (06:45→12:39)
[2021-04-22] MEDS ORDERED: HYDROmorphone INJ 2 MG/ML SYR/VIAL IV PRN (06:45)
[2021-04-22] MEDS ORDERED: fentaNYL citrate 100 MCG/2 ML VIAL IV PRN (06:45)
[2021-04-22] MEDS ORDERED: MIDAZOLAM HCL 1 MG/ML 2ML VIAL ONE ×2 (06:48→12:49)
[2021-04-22] MEDS ORDERED: fentaNYL citrate 100 MCG/2 ML VIAL ONE (06:48)
[2021-04-22] MEDS ORDERED: FAMOTIDINE/PF 20 MG/2 ML VIAL IV ONE (06:50)
[2021-04-22] MEDS ORDERED: ACETAMINOPHEN 1000 MG/100 ML IV IV ONE (06:51)
[2021-04-22] MEDS ORDERED: CHLORHEXIDINE GLUCONATE 0.12% 480 ML ONE (06:53)
[2021-04-22] MEDS ORDERED: TRIAMCINOLONE ACET 0.1% OINT 15 GM TUBE ONE (06:53)
[2021-04-22] MEDS ORDERED: STERILE IRRIGATING OPTH SOLUTION (BSS) 15ML ONE (06:53)
[2021-04-22] MEDS ORDERED: BUPIVACAINE/EPINEPHRINE 0.5% 1:200,000 1.8 ML CARP ONE ×2 (06:53→07:50)
[2021-04-22] MEDS ORDERED: LIDOCAINE 2% JELLY 5 ML TUBE ONE (06:54)
[2021-04-22] MEDS ORDERED: OXYMETAZOLINE 0.05% 30 ML BTL ONE (06:54)
[2021-04-22] MEDS ORDERED: SCOPOLAMINE 1 MG TDSY TD ONE (07:09)
--- NOTE | 2021-04-22 07:11 | History & Physical Report ---
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 The patient has a true jaw deformity that is preventing him/her from functioning in a normal manner. The proposed surgery is for functional rehabilitation of the skeletal alignment of the patient`s jaw. I had the opportunity to examine Kimberlee Almonte in my office for an obvious jaw deformity. Clinical and radiographic examination revealed that Kimberlee has a significant skeletal malocclusion. This is associated with an abnormal growth of both the upper and lower jaw. 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 I propose the following surgical procedures to correct this skeletal malocclusion. LeFort I CPT 60888 Sagittal Osteotomy CPT 49561 Surgical splint CPT 54572 The goal of this proposed jaw surgery is to re-establish the functional capacity of the patient`s bite. This has been brought about primarily by an unbalanced jaw relationship and resulting lack of occlusion. My patient`s main complaint is difficulty with mastication and chronic lip,tongue and cheek bitting. The primary goal of this treatment is to restore normal function through zoroastrian of proper jaw position. The deformity is not correctable by orthodontic alone and surgery is medically necessary.We are preforming this procedure to obtain a function jaw relationship. The planned surgery will be preformed in the OR of [facility] in [place], [place]. Physical Exam Constitutional: WD/WN, vitals as above well developed, well nourished, healthy appearing, cooperative and comfortable Eyes: PERRL, conjunctivae normal, anicteric sclerae normal visual smyth by confrontation and PERRL ENMT: external ear and nose normal, oropharynx normal Nose: + turbinate abnormality, + septum abnormality and + sinus tenderness Mouth: + lip abnormality, + TMJ tender, + TMJ clicking and + poor dentition Mallampati Class: II Throat: uvula midline maxillary hypoplasia psudo Class III, midface retrognathism, normal lower jaw Neck: trachea midline, no thyromegaly trachea midline Thyroid: normal thyroid Respiratory: normal respiratory effort, lungs clear to auscultation normal respiratory effort Auscultation: lungs clear to auscultation bilaterally Cardiovascular: RRR, no murmur, no edema Rate/Rhythm: regular rate and regular rhythm Extremities: normal capillary refill Gastrointestinal (Abdomen): normal bowel sounds, soft, nontender, no hepatosplenomegaly Inspection/Auscultation: abdomen normal to inspection Musculoskeletal: no cyanosis or clubbing, extremities motor strength 5/5 Head/Neck/Chest: + head abnormal to inspection Skin: no rashes, warm and dry normal turgor Neurologic: PERRL, EOMI, accommodation nl, no face palsy, no dysarthria CN's II-XI intact bilaterally Cranial Nerves: sense of smell intact, PERRL, normal accommodation, EOM intact bilaterally, normal facial strength, tongue midline, normal gag reflex, normal hearing, able to rotate head bilaterally, able to elevate shoulders bilaterally, no nystagmus and symmetric palate elevation Psychiatric: Orientation: alert and oriented x 3 Apperance: appropriately dressed and appropriately groomed Lymphatic: no cervical or axillary lymphadenopathy Review of System Constitutional: Constitutional: no fever, no chills, no sweats, no fatigue, no weight loss and no weight gain Eyes: Eyes: no corrective lenses, no diplopia, no decreased night vision, no eye pain, no spots in vision and no problem reported Ear, Nose, Mouth, Throat: Ear, Nose, Mouth, Throat: + ear pain and + hearing loss; no nasal discharge, no sore throat, no hoarseness and no dysphagia Respiratory: Respiratory: no cough, no dyspnea, no dyspnea on exertion, no hemoptysis and no wheezing Cardiovascular: Cardiovascular: no chest pain, no palpitations, no lightheadedness and no edema Gastrointestinal: Gastrointestinal: no abdominal pain, no belching, no bloating, no heartburn, no nausea, no vomiting, no cramping, no constipation, no diarrhea/loose stools, no fecal incontinence and no blood in stools Genitourinary (Female): Genitourinary (Female): no dysuria, no difficulty urinating, no urinary frequency, no urinary incontinence and no hematuria Musculoskeletal: Musculoskeletal: + neck pain and + joint pain; no back pain and no stiffness Integumentary: Integumentary: no boil, no rash, no changing lesions and no dry skin Neurologic: Neurologic: + headache(s); no tingling, no numbness, no seizure-like activity, no dizziness, no syncope and no memory loss Psychiatric: Psychiatric: no depression, no abnormal sleep pattern, no anxiety and no confusion Endocrine: Endocrine: no polydipsia, no polyphagia, no polyuria, no cold intolerance and no heat intolerance Hematologic / Lymphatic: Hematologic / Lymphatic: no easy bleeding, no easy bruising, no coagulopathy and no lymphadenopathy [facility] Review of System updated 2020 Review of Systems: Physical Exam ConstitutionalWD/WN, vitals as above EyesPERRL, conjunctivae normal, anicteric sclerae Neck tracheamidline, no thyromegaly Thyroid:normal thyroid Facemaxilla hypoplasia and mandibular prognathism, crossbite and deviation and canting noted Respiratorynormal respiratory effort, lungs clear to auscultation Auscultation: lungs clear to auscultation bilaterally Cardiovascular RRR, no murmur, no edema Rate/Rhythm: regular rate and regular rhythm Gastrointestinal (Abdomen)normal bowel sounds, soft, nontender, no hepatosplenomegaly Musculoskeletalno cyanosis or clubbing, extremities motor strength 5/5 Skinno rashes, warm and dry NeurologicPERRL, EOMI, accommodation nl, no face palsy, no dysarthria Cranial Nerves:sense of smell intact, PERRL, normal accommodation, EOM intact bilaterally, normal facial strength, tongue midline, normal gag reflex, normal hearing, able to rotate head bilaterally, able to elevate shoulders bilaterally, no nystagmus and symmetric palate elevation PsychiatricA+Ox3, euthymic affect Orientation: cooperative Lymphaticno cervical or axillary lymphadenopathy Allergies Allergy/AdvReac Type Severity Reaction Status Date / Time No Known Allergies Allergy Verified 04/22/21 06:26 Home Medications Medication Instructions Recorded Confirmed Type dextroamphetamine-amphetamine 20 20 mg PO BID 04/13/19 04/22/21 History mg tablet (Adderall) levothyroxine 50 mcg tablet 50 mcg PO QAM 04/13/19 04/22/21 History cetirizine 10 mg capsule (Zyrtec) 10 mg PO QAM 11/05/20 04/22/21 History cholecalciferol (vitamin D3) 50 100 mcg PO QAM 11/05/20 04/22/21 History mcg (2,000 unit) capsule (Vitamin D3) multivitamin with minerals 1 tab PO QAM 11/05/20 04/22/21 History (Hair,Skin and Nails) vitamin B complex 1 cap PO QAM 11/05/20 04/22/21 History Past Med/Surg History Medical History ADD (attention deficit disorder) Hepatitis C antibody positive in blood followed with GI x 5 years; monitored; no hx active hep C requiring treatment History of ovarian cyst Chronic Hypothyroidism Kidney stones Hx Nausea after anesthesia Renal calculus, right Right ovarian cyst TMJ (temporomandibular joint disorder) + popping/locking (most recent episode "a few weeks ago") Surgical History History of adenoidectomy History of anesthesia reaction General aggravation (non-violent), crying with emergence History of appendectomy 2008 History of section History of colonoscopy History of esophagogastroduodenoscopy (EGD) History of lithotripsy Right ESWL (11/14/20): LMA#4 at [facility] [place] History of oral surgery 2007 History of surgery precancerous birthmark removal/ graft 2004 History of tonsillectomy Family History Other Cancer No family history of adverse response to anesthesia No pertinent family history Denies family history of Ovarian cancer Breast cancer Colorectal cancer Social History Smoking Status: Current every day smoker Cigarettes Per Day: 1/2 ppd; Second Hand Exposure: No; Do You Dip or Chew Tobacco: No; Tobacco Cessation Education Requested by Patient: No Hx Alcohol Use: Yes Alcohol Intake Frequency: 4 or More x per/Week Hx Substance Use: No Preferred Language: Russian Communication Ability: Effective Surgical Corsetier Required: No Beliefs That Will Affect Care: None marital status: Current Living Situation: Spouse current occupational status: employed current occupation: Manager [employer] How many Children do You have: 2 Other Information That Helps Us Care for You: No Feels Safe at Home: Yes Safety Concerns: Feels Safe At This Time Assistive Devices: None Results & Data Results & Data ([facility]) Vital Signs (Past 12 Hours) Vital Signs Temp Pulse Resp BP Pulse Ox 04/22/21 06:22 36.6 C 91 H 20 110/74 100 PG Care Time/CCT Total # of Minutes Spent Total Time Spent with Patient: Total time spent is greater than 50% in coordination of care (as documented) at patient's floor/unit and/or counseling patient: Coding Level of Care Code None Diagnoses Maxillary retrognathism M26.19 Mandibular asymmetry M26.12 Cross bite M26.24
--- NOTE | 2021-04-22 07:12 | History & Physical Bridge Note ---
Date of Service April 22, 2021 History & Physical Bridge Note I have examined the patient, reviewed the History & Physical and in the interval since the performance of the History & Physical I have noted the following changes of clinical significance: no changes noted. COVID neg plan Max/Yvonne osteotomies Plan Out patient is criteria are met for D/C after procedures
[2021-04-22] MEDS ORDERED: HYDROmorphone INJ 2 MG/ML SYR/VIAL ONE (07:41)
[2021-04-22] MEDS ORDERED: PROPOFOL IV EMULSION 10 MG/ML 20 ML VIAL IV ONE (08:57)
[2021-04-22] MEDS ORDERED: NEOSTIGMINE METHYLSULFATE 1 MG/ML 10ML VIAL ONE (08:57)
[2021-04-22] MEDS ORDERED: GLYCOPYRROLATE 0.2 MG/ML VIAL ONE (08:57)
[2021-04-22] MEDS ORDERED: ONDANSETRON INJ 2 MG/ML 2 ML VIAL ONE (08:57)
[2021-04-22] MEDS ORDERED: METOCLOPRAMIDE HCL INJ 5 MG/ML 2 ML VIAL ONE (08:57)
[2021-04-22] MEDS ORDERED: DEXAMETHASONE SOD INJ 4 MG/ML VIAL ONE (08:57)
[2021-04-22] MEDS ORDERED: ROCURONIUM BROMIDE 10 MG/ML 5 ML VIAL IV ONE (08:57)
[2021-04-22] MEDS ORDERED: LIDOCAINE 2% 2 ML VIAL/AMP(20MG/ML) INFIL ONE (08:57)
[2021-04-22] MEDS ORDERED: diphenhydrAMINE 50 MG/ML VIAL ONE (08:57)
[2021-04-22] MEDS ORDERED: SURGICEL ABSORB HEMOSTAT 2IN X 14IN TOP ONE (09:28)
[2021-04-22] MEDS ORDERED: ceFAZolin 1000MG 1,000 MG/7.5 ML SYR IV ONE (11:19)
[2021-04-22] MEDS ORDERED: LORazepam 1 MG/2 ML VIAL IV PRN ×2 (12:39→14:45)
[2021-04-22] MEDS ORDERED: OXYMETAZOLINE 0.05% 30 ML BTL PRN ×2 (12:39→14:45)
[2021-04-22] MEDS ORDERED: ACETAMINOPHEN SUSP 325 MG/10.15 ML UDC PO PRN ×2 (12:39→14:45)
[2021-04-22] MEDS ORDERED: MoRPHine SULFATE 2 MG/ML CARP IV PRN (12:39)
--- NOTE | 2021-04-22 12:46 | Operative Report ---
PG Post Operative Report Pre & Post Diagnosis Operation Date: 04/22/21 07:15 Pre-Op Diagnosis: Maxillary Retrognathism, Mandibular Prognathism Post-Op Diagnosis: Maxillary Retrognathism, Mandibular Prognathism I identified the patient and participated in the time-out.: Yes Procedure Operation Date: 04/22/21 07:15 Actual Procedures p Lefort I, Spagittal Splint Osteotomies(Not Applicable) - El Rodriguez, QUOC Surgeon El Rodriguez, QUOC Upper And Bottom Lacer Hand none Estimated Blood Loss 200 Findings mandibular/maxillary hypoplasia Specimens none Drains none Anesthesia Type General Complications none I attest to the content of the Intraoperative Record and any orders documented therein. Any exceptions are noted below.
[2021-04-22] MEDS ORDERED: LORazepam 2 MG/4 ML VIAL ONE (12:51)
[2021-04-22] MEDS ORDERED: KETOROLAC 30 MG/ML VIAL ONE (12:55)
[2021-04-22] MEDS: KETOROLAC 30 MG/ML VIAL IV SCH ×2 (12:56→18:35)
--- NOTE | 2021-04-22 14:12 | XRay Report ---
XR mandible <4V CLINICAL HISTORY: Status Post-Op Surgery AP Mandibular and Jaw View COMPARISON: Facial bone CT February 27, 2021. FINDINGS: Note is made of postoperative findings within the maxilla and mandible. There are bilatera l sagittal split osteotomies. Hardware is intact. There are no unexpected radiopaque foreign bodies. IMPRESSION: Expected postoperative findings within the maxilla and mandible, as described above. ACT 112: Negative or not required by law. Electronically signed by: Goran Perez M.D. 04/22/2021 2:10 PM
--- NOTE | 2021-04-22 14:27 | Anesthesiology Progress Note ---
Date of Service April 22, 2021 Anesthesia Post Procedure Vital Signs Vital Signs: Temp Pulse Pulse Resp BP Pulse Ox 04/22/21 14:00 36.3 C L 58 L 20 115/36 L 94 04/22/21 13:50 36.4 C L 56 L 20 96/45 L 94 04/22/21 13:40 55 L 20 97/50 L 97 04/22/21 13:30 61 21 107/41 L 95 04/22/21 13:20 61 20 95/49 L 97 04/22/21 13:10 62 20 103/44 L 97 04/22/21 13:00 57 L 18 96/46 L 97 04/22/21 12:50 55 L 12 94/47 L 95 04/22/21 12:43 36.6 C 86 16 117/80 98 04/22/21 06:22 36.6 C 91 H 20 110/74 100 Pain Intensity Mouth: Pain Intensity: 6 Transfer of Care Handoff Completed per policy Notes Mental Status: alert / awake / arousable and participated in evaluation Patient Amnestic to Procedure: Yes Nausea / Vomiting: adequately controlled Pain: adequately controlled Airway Patency, RR, SpO2: stable & adequate BP & HR: stable & adequate Hydration State: stable & adequate Anesthetic Complications: no major complications apparent
[2021-04-22] MEDS ORDERED: KETOROLAC 30 MG/ML VIAL IV SCH (14:45)
[2021-04-22] MEDS ORDERED: SODIUM CHLORIDE 0.65% NA SOLN 45 ML (OCEAN) PRN (14:45)
[2021-04-22] MEDS ORDERED: MoRPHine SULFATE 4 MG/ML 1 ML CARP\\VIAL IV PRN (14:45)
[2021-04-22] MEDS: ceFAZolin 1000MG 1,000 MG/7.5 ML SYR IV SCH (16:33)
[2021-04-22] MEDS: dexAMETHasone 6 MG in SYRINGE 0 ML IV SCH ×2 (18:35→23:18)
[2021-04-22] MEDS: CHLORHEXIDINE GLUCONATE 0.12% 480 ML MT SCH (20:49)
[2021-04-22] MEDS: MoRPHine SULFATE 2 MG/ML CARP IV PRN (20:50)
[2021-04-22] MEDS: ONDANSETRON INJ 2 MG/ML 2 ML VIAL IV PRN (20:50)
[2021-04-22] MEDS ORDERED: TRIAMCINOLONE ACET 0.1% OINT 15 GM TUBE EXT SCH (21:00)
[2021-04-23] MEDS: ceFAZolin 1000MG 1,000 MG/7.5 ML SYR IV SCH ×2 (01:00→07:54)
[2021-04-23] MEDS: KETOROLAC 30 MG/ML VIAL IV SCH ×2 (01:00→05:59)
[2021-04-23] MEDS: MoRPHine SULFATE 2 MG/ML CARP IV PRN ×2 (04:43→10:45)
[2021-04-23] MEDS: ONDANSETRON INJ 2 MG/ML 2 ML VIAL IV PRN (04:43)
[2021-04-23] MEDS: dexAMETHasone 6 MG in SYRINGE 0 ML IV SCH (05:59)
[2021-04-23] MEDS: CHLORHEXIDINE GLUCONATE 0.12% 480 ML MT SCH (07:56)
== END 2021-04-23 12:01 | disposition home or self-care (01) ==
LOC: 3N 06:06 → ASU 06:06
DX: M26.03 Mandibular hyperplasia; M26.24 Reverse articulation; M26.02 Maxillary hypoplasia; F17.210 Nicotine dependence, cigarettes, uncomplicated; E03.9 Hypothyroidism, unspecified; M26.19 Other specified anomalies of jaw-cranial base relationship; Z79.899 Other long term (current) drug therapy; M26.12 Other jaw asymmetry; Z79.890 Hormone replacement therapy